=== PATIENT | male | born 1980 | race Caucasian/White ===

== ENCOUNTER 2017-06-27 02:03 | Emergency (ER) | payer MEDICAID, OTHER ==
[~2017-06-27] VITALS: Ht 175.3 cm; Wt 100.0 kg
[2017-06-27] MEDS ORDERED: KETOROLAC 30MG/ML VIAL IM ONE (04:45)
[2017-06-27] MEDS ORDERED: ONDANSETRON 4MG ODT PO ONE (04:45)
[2017-06-27 05:02] VITALS: BP 128/71
== END 2017-06-27 06:20 | disposition home or self-care (01) ==
LOC: ER 02:03
DX: S62.394A Other fracture of fourth metacarpal bone, right hand, initial encounter for closed fracture (principal); V19.88XA Pedal cyclist (driver) (passenger) injured in other specified transport accidents, initial encounter; Y93.89 Activity, other specified; Y92.89 Other specified places as the place of occurrence of the external cause; Y99.8 Other external cause status
CPT/HCPCS: 29125; 73130; 96372; 99284; J1885; Q0162

== ENCOUNTER 2017-07-01 05:14 | Emergency (ER) | payer OTHER ==
[~2017-07-01] VITALS: Ht 175.3 cm; Wt 100.0 kg
[2017-07-01] MEDS ORDERED: HYDROCODONE/ACETAMINOPHEN 5/325MG TABLET PO ONE (07:00)
[2017-07-01] MEDS ORDERED: NAPROXEN 375MG TABLET PO ONE (07:00)
[2017-07-01 08:30] VITALS: BP 130/74
== END 2017-07-01 08:49 | disposition home or self-care (01) ==
LOC: ER 05:14
DX: S20.229A Contusion of unspecified back wall of thorax, initial encounter (principal); X58.XXXA Exposure to other specified factors, initial encounter; Y93.89 Activity, other specified; Y92.89 Other specified places as the place of occurrence of the external cause; Y99.8 Other external cause status
CPT/HCPCS: 71010; 99283; Z7610